=== PATIENT | male | born 1995 | race American Indian/Alaskan Native ===

== ENCOUNTER 2017-03-14 12:41 | Emergency (ER) | payer SELFPAY ==
[2017-03-14] MEDS ORDERED: ANCEF ONE (12:49)
== END 2017-03-14 13:06 | disposition home or self-care (01) ==
LOC: ED 12:41
DX: Z53.21 Procedure and treatment not carried out due to patient leaving prior to being seen by health care provider (principal)
CPT/HCPCS: J0690